=== PATIENT | male | born 1970 | race Caucasian/White ===

== ENCOUNTER 2018-08-13 01:49 | Emergency (ER) | payer BC, OTHER ==
[~2018-08-13] VITALS: Ht 165.1 cm; Wt 68.1 kg
[~2018-08-13 01:49] MED LIST: ASPI-676 PO; SIMV20TA2 PO
[2018-08-13 01:51] VITALS: Ht 165.1 cm; Wt 68.1 kg
[2018-08-13] MEDS ORDERED: GUAIFENESIN LA 600 MG TABSR PO ONE (03:00)
[2018-08-13] MEDS ORDERED: FLUTICASONE 0.05% 16 GM NAS SPRAY NASAL ONE (03:00)
[2018-08-13] MEDS ORDERED: IBUP-1542 PO (03:23)
[2018-08-13] MEDS ORDERED: GUAI-497 PO (03:23)
[2018-08-13] MEDS ORDERED: AMOX500C2 PO ×2 (03:24)
[2018-08-13 03:42] VITALS: BP 157/85; PULSE 60; RESP 18
--- NOTE | 2018-08-13 03:46 | ERD ---
ER Documentation Chief Complaint Chief Complaint POST NASAL DRIP, CONGESTION X2-3DAYS HPI Patient is a 48-year-old male presents the ER for concerns of nasal congestion for the last 2-3 days. Patient states he was unable to breathe tonight secondary to nasal congestion thus he came to the ER. Patient states he has been blowing his nose throughout the night. Patient does report a single episode of epistaxis which lasted less than 2 minutes and was controlled with direct pressure. Patient reports clear secretions. Patient denies any chest pain, chest tightness, left upper extremity, diaphoresis, nausea, vomiting or LOC. Patient denies any shortness of breath at rest. Patient has not taken any medications for symptoms. Patient states for the last 3-4 months he has intermittent episodes of similar congestion. 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 Patient denies wearing a mask. ROS All systems reviewed and are negative except as per history of present illness. Medications Home Meds Active Scripts Amoxicillin* (Amoxicillin*) 500 Mg Cap, 500 MG PO BID for 7 Days, CAP Prov:HERMINIA CRANE PA-C 08/13/18 Gsgcxccefvp-Eprdqztqcgwqv-Ouesdjhoiozhy (Mucinex Sinus-Max Severe Congestion) 1 Each Tablet, 1 TAB PO BID, #20 TAB Prov:HERMINIA CRANE PA-C 08/13/18 Ibuprofen* (Motrin*) 600 Mg Tab, 600 MG PO Q6, #30 TAB Prov:HERMINIA CRANE PA-C 08/13/18 Reported Medications Simvastatin (Simvastatin) 20 Mg Tablet, PO HS 05/04/13 Aspirin (Nenita Child) 81 Mg Chew, PO DAILY 05/04/13 Discontinued Scripts Amoxicillin* (Amoxicillin*) 500 Mg Cap, 500 MG PO TID for 7 Days, CAP Prov:HERMINIA CRANE PA-C 08/13/18 Allergies Allergies: Coded Allergies: No Known Drug Allergies (Verified Allergy, 05/04/13) PMhx/Soc Medical and Surgical Hx: pt denies Medical Hx History of Surgery: No Anesthesia Reaction: No Hx Neurological Disorder: No Hx Respiratory Disorders: Yes (BRONCHITIS) Hx Cardiac Disorders: No Hx Psychiatric Problems: No Hx Miscellaneous Medical Probl: No Hx Alcohol Use: Yes (PT STATED HE USES ALCOHOL OCCASSIONALLY) Hx Substance Use: No Hx Tobacco Use: Yes (PT STATED HE IS TRYING TO QUIT) Sm[facility] Status: [facility] Family History: No diabetes Physical Exam Vitals Vital Signs Date Temp Pulse Resp B/P (MAP) Pulse Ox O2 O2 Flow FiO2 Time Delivery Rate 08/13/18 97.1 85 19 160/97 99 01:51 (118) Physical Exam GENERAL: Well-developed, well-nourished male. Appears in no acute distress. HEAD: Normocephalic, atraumatic. EYES: Pupils are equally reactive bilaterally. EOMs grossly intact. No conjunctival erythema. ENT: Bilateral tympanic members are nonerythematous, nonbulging. Nasal congestion noted on exam. Dried blood noted in right nare. No blood noted in the posterior oropharynx. Moist mucous membranes. No uvula deviation. No kissing tonsils. Tender to palpation of bilateral maxillary sinuses. NECK: Supple. No meningismus. Normal range of motion of the neck. LUNG: Clear to auscultation bilaterally. No rhonchi, wheezing, rales or coarse breath sounds. HEART: Regular rate and rhythm. No murmurs, rubs or gallops. EXTREMITIES: Equal pulses bilaterally. No peripheral clubbing, cyanosis or edema. No unilateral leg swelling. NEUROLOGIC: Alert and oriented. Moving all four extremities without any difficulty. Normal speech. Steady gait. SKIN: Normal color. Warm and dry. No rashes or lesions. Results 24 hrs Current Medications Medications Dose Sig/Maria Alejandra Start Time Status Last (Trade) Ordered Route PRN Stop Time Admin Dose Reason Admin Guaifenesin 600 mg ONCE ONCE 08/13/18 DC 08/13/18 (Mucinex) PO 03:00 03:05 08/13/18 03:01 Fluticasone 1 spray ONCE ONCE 08/13/18 DC 08/13/18 Propionate NASAL 03:00 03:05 (Flonase 08/13/18 03:01 0.05% Nasal) Procedures/MDM MEDICAL DECISION MAKING: This is a 48-year-old male presents the ER for concerns of nasal congestion for the last 2-3 days, worse tonight. Vital signs were reviewed. Patient was afebrile. Patient was not hypoxic. On exam, patient was noted to be congested. Patient did have dried blood in his right nare which is consistent with episode of epistaxis which she had prior to arrival. No epistaxis at time of exam. Patient was given Flonase as well as Mucinex here in the ER. Patient did report improvement in symptoms prior to discharge. Patient was advised on humidifier use. Patient did admit to symptoms intermittently for the last 3-4 months. Patient was advised his symptoms are likely related to allergic rhinitis. Antihistamine use was discussed. Protective wear was advised as well as patient states he does work in [employer]. At this time, patient presentation is most consistent with nasal congestion secondary to URI. Low suspicion for sinusitis, deep space infection, meningitis, otitis media, pneumonia, CHF, strep pharyngitis, epiglottitis or peritonsillar abscess. Low suspicion for posterior epistaxis or coagulation disorder. Patient will be given a prescription for amoxicillin and advised not to start this medication until 08-16-18 if symptoms persist. Patient was nontoxic, non-ill appearing prior to discharge. Patient blood pressure was noted to be elevated he was advised to follow-up with his primary care physician for further management of his symptoms. PRESCRIPTIONS: Amoxicillin, Mucinex, ibuprofen DISCHARGE: At this time, patient is stable for discharge and outpatient management. Supportive therapies such as OTC throat lozenges, salt water gurgles, popsicles and jello discussed. I have instructed the patient to follow-up with his/her primary care physician in 1-2 days. I have instructed the patient to promptly return to the ER for any new or worsening symptoms including increased pain, swelling, fever, nausea, vomiting, weakness or difficulty breathing. The patient and/or family expressed understanding of and agreement with this plan. All questions were answered. Home care instructions were provided. Patients blood pressure was elevated (>120/80) but appears stable without evidence of hypertensive emergency, hypertensive urgency or end-organ failure. I had discussion with the patient about the risks of hypertension. I have advised the patient to follow up with his/her primary care physician for outpatient monitoring and treatment for hypertension in 2-3 days. I have instructed the patient to return to the ER for any new or worsening symptoms including chest pain, shortness of breath, headache, blurred vision, confusion, nausea, vomiting or LOC. Disclaimer: Inadvertent spelling and grammatical errors are likely due to EHR/dictation software use and do not reflect on the overall quality of patient care. Also, please note that the electronic time recorded on this note does not necessarily reflect the actual time of the patient encounter. Departure Diagnosis: Primary Impression: Nasal congestion Additional Impression: Elevated blood pressure reading Condition: Fair Patient Instructions: Sinus Headaches, High Blood Pressure (Hypertension) Referrals: [facility] YOU HAVE RECEIVED A MEDICAL SCREENING EXAM AND THE RESULTS INDICATE THAT YOU DO NOT HAVE A CONDITION THAT REQUIRES URGENT TREATMENT IN THE EMERGENCY DEPARTMENT. FURTHER EVALUATION AND TREATMENT OF YOUR CONDITION CAN WAIT UNTIL YOU ARE SEEN IN YOUR DOCTORS OFFICE WITHIN THE NEXT 1-2 DAYS. IT IS YOUR RESPONSIBILITY TO MAKE AN APPOINTMENT FOR FOLOW-UP CARE. IF YOU HAVE A PRIMARY DOCTOR --you should call your primary doctor and schedule an appointment IF YOU DO NOT HAVE A PRIMARY DOCTOR YOU CAN CALL OUR PHYSICIAN REFERRAL HOTLINE AT IF YOU CAN NOT AFFORD TO SEE A PHYSICIAN YOU CAN CHOSE FROM THE FOLLOWING [facility] [address] [facility]. [facility] [address] [facility]. [facility] [address] [facility] [address] [facility] [address] [facility]. [facility] [address] [facility]. [facility] YOU HAVE RECEIVED A MEDICAL SCREENING EXAM AND THE RESULTS INDICATE THAT YOU DO NOT HAVE A CONDITION THAT REQUIRES URGENT TREATMENT IN THE EMERGENCY DEPARTMENT. FURTHER EVALUATION AND TREATMENT OF YOUR CONDITION CAN WAIT UNTIL YOU ARE SEEN IN YOUR DOCTORS OFFICE WITHIN THE NEXT 1-2 DAYS. IT IS YOUR RESPONSIBILITY TO MAKE AN APPOINTMENT FOR FOLOW-UP CARE. IF YOU HAVE A PRIMARY DOCTOR --you should call your primary doctor and schedule and appointment IF YOU DO NOT HAVE A PRIMARY DOCTOR YOU CAN CALL OUR PHYSICIAN REFERRAL HOTLINE AT . IF YOU CAN NOT AFFORD TO SEE A PHYSICIAN YOU CAN CHOSE FROM THE FOLLOWING [facility] INSTITUTIONS: [facility] [address] [place] [address] [facility] [address] [place] [address] [facility] + [facility] [address] [place] [address] Additional Instructions: Start antibiotics after 2-1-19 if symptoms persist. Call your primary care doctor TOMORROW for an appointment during the next 1-2 days.See the doctor sooner or return here if your condition worsens before your appointment time. HERMINIA CRANE PA-C Aug 13, 2018 03:46
== END 2018-08-13 03:43 | disposition home or self-care (01) ==
LOC: FTE 01:49
DX: R09.81 Nasal congestion (principal); R03.0 Elevated blood-pressure reading, without diagnosis of hypertension; F17.210 Nicotine dependence, cigarettes, uncomplicated; Z79.82 Long term (current) use of aspirin
CPT/HCPCS: 99283